=== PATIENT | female | born 1965 | race Caucasian/White ===

== ENCOUNTER 2023-04-16 14:01 | Emergency (ER) | payer OTHER ==
[~2023-04-16] VITALS: Ht 149.9 cm; Wt 50.0 kg
[2023-04-16 14:27] VITALS: O2SAT 94
[2023-04-16 14:59] LABS: BASOPHILS % 1.1 % (0.0-2.0); DIFFERENTIAL COMMENT 0; EOSINOPHILS % 1.1 % (0.0-5.0); HEMATOCRIT. 37.4 % (36.0-48.0); HEMOGLOBIN. 12.8 g/dL (12.0-16.0); MEAN CORPUSCULAR HEMOGLOBIN 34.3 pg (28.0-32.0); MEAN CORPUSCULAR HGB CONC 34.1 g/dL (31.0-37.0); MEAN CORPUSCULAR VOLUME 100.5 fL (81.0-99.0); MEAN PLATELET VOLUME 8.2 fl (7.4-10.4); MONOCYTES % 9.3 % (2.0-8.0); NEUTROPHILS % 53.5 % (40.0-76.0); PLATELET 216 x1000/uL (130-400); RED BLOOD CELL COUNT 3.72 mill/uL (4.2-5.4); RED CELL DISTRIBUTION WIDTH 13.4 % (11.6-14.6); WHITE BLOOD COUNT 4.8 x1000/uL (4.5-11.0)
[2023-04-16 15:11] LABS: ALANINE AMINOTRANSFERASE 25 IU/L (10-49); ALBUMIN 3.6 g/dL (3.2-4.8); ASPARTATE AMINOTRANSFERASE 30 IU/L (<34); BILIRUBIN TOTAL 0.8 mg/dL (0.1-1.0); CALCIUM 8.5 mg/dL (8.7-10.4); CARBON DIOXIDE 26 mEq/L (21-32); CHLORIDE 106 mEq/L (98-107); CREATININE 0.6 mg/dL (0.6-1.0); GLUCOSE 96 mg/dL (70-105); POTASSIUM 3.9 mEq/L (3.5-5.1); PROTEIN TOTAL 7.1 g/dL (6.0-8.3); SODIUM 139 mEq/L (136-145); UREA NITROGEN BLOOD 11 mg/dL (9-23)
[2023-04-16 15:13] LABS: TROPONIN I HIGH SENSITIVITY < 4 ng/L (3.0-34)
[2023-04-16 21:35] VITALS: BP 100/40; PULSE 77; RESP 17; TEMP 98.5
== END 2023-04-16 22:41 | disposition short-term general hospital (02) ==
LOC: ER 14:01 → EDBEDREQ 14:31 → CANBEDREQ 19:28 → ER 22:41
DX: R53.1 Weakness (principal)
CPT/HCPCS: 36415; 71045; 80053; 83605; 84484; 85025; 93005; 99285

== ENCOUNTER 2024-09-20 16:44 | Emergency (ER) | payer OTHER ==
[~2024-09-20] VITALS: Ht 160 cm; Wt 70.0 kg
[2024-09-20 16:46] VITALS: O2SAT 98
[2024-09-20] MEDS ORDERED: LEVETIRACETAM 500MG PREMIX 100 ML IV ONE (17:00)
[2024-09-20] MEDS: LORAZEPAM 2MG/ML UD SYRINGE IV SCH (17:20)
[2024-09-20 17:40] LABS: BASOPHILS % 0.7 % (0.0-2.0); EOSINOPHILS % 0.4 % (0.0-5.0); HEMATOCRIT. 42.5 % (36.0-48.0); HEMOGLOBIN. 14.0 g/dL (12.0-16.0); LYMPHOCYTES % 45.2 % (20.0-50.0); MEAN PLATELET VOLUME 8.9 fl (7.4-10.4); MONOCYTES % 4.0 % (2.0-8.0); NEUTROPHILS % 49.7 % (40.0-76.0); PLATELET 216 x1000/uL (130-400); RED BLOOD CELL COUNT 4.17 mill/uL (4.2-5.4); RED CELL DISTRIBUTION WIDTH 13.8 % (11.6-14.6)
[2024-09-20 17:52] LABS: CREATININE 0.7 mg/dL (0.6-1.0); UREA NITROGEN BLOOD 8 mg/dL (9-23)
[2024-09-20 17:53] LABS: TROPONIN I HIGH SENSITIVITY < 4 ng/L (3.0-34)
[2024-09-20 18:08] LABS: LACTIC ACID 5.2 mmol/L (0.4-2.0)
[2024-09-20 18:12] LABS: INR 1.0
[2024-09-20 18:55] VITALS: TEMP 36.5
[2024-09-20 18:57] LABS: CLARITY URINE CLEAR (CLEAR); COLOR URINE YELLOW (YELLOW); GLUCOSE URINE NEGATIVE (NEGATIVE); KETONES URINE NEGATIVE (NEGATIVE); PH URINE 7.0 (4.5-8.0); PROTEIN URINE NEGATIVE (NEGATIVE); SPECIFIC GRAVITY URINE 1.015 (1.005-1.030)
[2024-09-20 18:58] LABS: LEUKOCYTE ESTERASE URINE 1+ (NEGATIVE); NITRITE URINE NEGATIVE (NEGATIVE); OCCULT BLOOD URINE 2+ (NEGATIVE); UROBILINOGEN URINE 0.2 E.U./dL (0.2-1.0)
[2024-09-20 19:08] LABS: BACTERIA URINE TRACE; SQUAMOUS EPITHELIAL CELL URINE FEW /lpf (RARE/1+)
[2024-09-20] MEDS ORDERED: MAGNESIUM HYDROXIDE 400MG/5ML 30ML UDC PO ONE (19:15)
[2024-09-20] MEDS: LACTULOSE 20G/30ML UDC PO SCH (19:54)
[2024-09-20] MEDS: BISACODYL 10MG SUPP PR SCH (19:54)
[2024-09-20] MEDS: LEVOFLOXACIN 500MG PREMIX 100 ML IV SCH (20:04)
[2024-09-20 21:02] VITALS: TEMP 97.70
[2024-09-21 01:00] VITALS: BP 94/53; PULSE 90; RESP 12; O2SAT 100
== END 2024-09-21 01:25 | disposition short-term general hospital (02) ==
LOC: ER 16:44 → EDBEDREQ 21:01 → ER 09-21 01:25
DX: R56.9 Unspecified convulsions (principal); Q90.9 Down syndrome, unspecified; Z79.899 Other long term (current) drug therapy
CPT/HCPCS: 80048; 81003; 83605; 85025; 85610; 87040; 87086; 84484; 36415; 84145; 71045; 74018; 70450; 93005; 96365; 96375; 99285; J1956; J2060; Z7610 ×2